=== PATIENT | female | born 1950 | race African-American/Black ===

== ENCOUNTER 2016-06-17 20:11 | Emergency (ER) | payer MEDICARE ==
[~2016-06-17] VITALS: Ht 167.6 cm; Wt 117.0 kg
[2016-06-17 20:15] VITALS: BP 140/75
[2016-06-17] MEDS ORDERED: Albuterol ud Inhalation HHN ONE (20:15)
[2016-06-17] MEDS ORDERED: ADVAIR 250-501 EACH INH (20:21)
[2016-06-17] MEDS ORDERED: MONTELUKAST SOD10 MG ORAL (20:21)
[2016-06-17] MEDS ORDERED: RANITIDINE HCL150 MG ORAL (20:21)
[2016-06-17] MEDS ORDERED: ADVAIR 100-501 EACH INH (20:21)
[2016-06-17] MEDS ORDERED: POTASSIUM CHLO10 ME2 PO (20:21)
[2016-06-17] MEDS ORDERED: DIOVAN160 MG ORAL (20:21)
[2016-06-17] MEDS ORDERED: ALBUTEROL2.5 MG/3 M INH (20:21)
[2016-06-17] MEDS ORDERED: OMEPRAZOLE20 M2 ORAL (20:21)
[2016-06-17] MEDS ORDERED: CARDIZEM CD120 MG ORAL (20:21)
[2016-06-17] MEDS ORDERED: FUROSEMIDE40 MG ORAL (20:21)
[2016-06-17] MEDS ORDERED: BISACODYL5 MG ORAL (20:21)
[2016-06-17] MEDS ORDERED: LOVENOX10 MG SUBQ (20:21)
[2016-06-17] MEDS ORDERED: Diltiazem 25mg/5ml IV ONE (21:00)
[2016-06-17 21:02] LABS: BASOPHILS % (AUTO) 0.9 % (0.0-2.0); EOSINOPHILS % (AUTO) 1.1 % (0.0-3.0); LYMPHOCYTES % (AUTO) 22.7 % (20.0-45.0); MEAN CORPUSCULAR HEMOGLOBIN 30.4 PG (27.0-31.0); MEAN CORPUSCULAR HGB CONC 33.7 G/DL (32.0-36.0); MEAN CORPUSCULAR VOLUME 90 FL (80-99); MEAN PLATELET VOLUME 8.1 FL (6.5-10.1); MONOCYTES % (AUTO) 11.6 % (1.0-10.0); NEUTROPHILS % (AUTO) 63.7 % (45.0-75.0); PLATELET COUNT 218 K/UL (150-450); RED BLOOD COUNT 4.44 M/UL (4.20-5.40); RED CELL DISTRIBUTION WIDTH 13.6 % (11.6-14.8); WHITE BLOOD COUNT 15.8 K/UL (4.8-10.8)
--- NOTE | 2016-06-17 21:16 | Emergency Room Report ---
History of Present Illness General Chief Complaint: Chest Pain Source: Patient, Medical Record (Kenney Thacker) Present Illness HPI Patient's a 66-year-old female presented after increased chest pain. Patient gradual onset of symptoms. Patient was noted to have intermittent pain for the greater than hours. The patient was noted to have increased pain to the left side of her chest. Patient recent hip surgery. She had not been having fever. She denied any vomiting. She was noted to have a nonproductive cough for the past few days. (Kenney Thacker) Allergies: Coded Allergies: BUDESONIDE (Verified Allergy, Unknown, 06/17/16) FORMOTEROL (Verified Allergy, Unknown, 06/17/16) MORPHINE (Verified Allergy, Unknown, 06/17/16) PENICILLINS (Verified Allergy, Unknown, 06/17/16) Patient History Past Medical History: see triage record Last Menstrual Period: n/a Reviewed Nursing Documentation: PMH: Agreed, PSxH: Agreed (Kenney Thacker) Nursing Documentation-PMH Past Medical History: No History, Except For Hx Hypertension: Yes Hx Asthma: Yes (Kenney Thacker) Review of Systems All Other Systems: negative except mentioned in HPI (Kenney Thacker) Physical Exam Vital Signs Date Time Temp Pulse Resp B/P Pulse Ox O2 Delivery O2 Flow Rate FiO2 06/17/16 20:07 109 16 115/86 96 Room Air 06/17/16 20:35 21 Sp02 EP Interpretation: reviewed, normal General Appearance: normal inspection, well appearing, no apparent distress, alert, GCS 15 Head: atraumatic ENT: normal ENT inspection, hearing grossly normal, normal voice Neck: normal inspection, full range of motion, supple, no bony tend Respiratory: normal inspection, lungs clear, normal breath sounds, no respiratory distress, no retraction, no wheezing Cardiovascular #1: regular rate, rhythm, no edema Gastrointestinal: normal inspection, normal bowel sounds, non tender, soft, no guarding, no hernia Genitourinary: no CVA tenderness Musculoskeletal: normal inspection, back normal, normal range of motion Neurologic: normal inspection, alert, oriented x3, responsive, 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 Differential diagnosis included but was not limited to acute coronary syndrome, pulmonary embolism, pneumonia, aortic dissection, shingles, pneumothorax, aortic dissection, esophageal rupture, pericarditis. Because of complexity of patient's case laboratory testing and imaging studies were ordered. EKG interpreted by me showed normal sinus rhythm with a rate of with no acute ST or T wave changes noted. Because the patient's recent surgery CT of the chest was ordered to rule out pulmonary embolism. Patient was endorsed to Dr. Lin to go back to SNF if CT negative as ruled out for myocardial pain. Labs Test 06/17/16 20:45 White Blood Count 15.8 K/UL (4.8-10.8) Red Blood Count 4.44 M/UL (4.20-5.40) Hemoglobin 13.5 G/DL (12.0-16.0) Hematocrit 40.0 % (37.0-47.0) Mean Corpuscular Volume 90 FL (80-99) Mean Corpuscular Hemoglobin 30.4 PG (27.0-31.0) Mean Corpuscular Hemoglobin Concent 33.7 G/DL (32.0-36.0) Red Cell Distribution Width 13.6 % (11.6-14.8) Platelet Count 218 K/UL (150-450) Mean Platelet Volume 8.1 FL (6.5-10.1) Neutrophils (%) (Auto) 63.7 % (45.0-75.0) Lymphocytes (%) (Auto) 22.7 % (20.0-45.0) Monocytes (%) (Auto) 11.6 % (1.0-10.0) Eosinophils (%) (Auto) 1.1 % (0.0-3.0) Basophils (%) (Auto) 0.9 % (0.0-2.0) Sodium Level 136 mEQ/L (135-145) Potassium Level 4.8 mEQ/L (3.4-4.9) Chloride Level 95 mEQ/L (98-107) Carbon Dioxide Level 26 mEQ/L (20-30) Anion Gap 15 (5-15) Blood Urea Nitrogen 24 mg/dL (7-23) Creatinine 0.9 mg/dL (0.5-0.9) Estimat Glomerular Filtration Rate > 60 mL/min (>60) Glucose Level 136 mg/dL (74-106) Calcium Level 9.3 mg/dL (8.6-10.2) Total Bilirubin 0.2 mg/dL (0.0-1.2) Aspartate Amino Transf (AST/SGOT) 28 U/L (5-40) Alanine Aminotransferase (ALT/SGPT) 22 U/L (3-33) Alkaline Phosphatase 91 U/L (35-104) Total Creatine Kinase 503 U/L (26-140) Creatine Kinase MB 6.3 ng/mL (< 3.8) Creatine Kinase MB Relative Index 1.2 Troponin I < 0.30 ng/mL (<=0.30) Pro-B-Type Natriuretic Peptide 60 pg/mL (0-125) Total Protein 6.5 g/dL (6.6-8.7) Albumin 3.7 g/dL (3.5-5.2) Globulin 2.8 g/dL Albumin/Globulin Ratio 1.3 (1.0-2.7) (Kenney Thacker) ER Course Received signout from Dr Thacker to followup CT Chest CT Chest: no PNA or PE Dr Thacker stated if no PNA or PE, send back to rehab facility We tried to contact Dr Becerra - wire charger left message at 12 midnight. Pending call back Will DC patient back to SNF (CECILE LIN M.D.) EKG Diagnostic Results Rate: normal Rhythm: NSR ST Segments: no acute changes (Kenney Thacker) Rhythm Strip Diag. Results EP Interpretation: yes Rhythm: NSR, no PVC's, no ectopy (Kenney Thacker) Last Vital Signs Date Time Temp Pulse Resp B/P Pulse Ox O2 Delivery O2 Flow Rate FiO2 06/17/16 20:36 106 20 100 Room Air 06/17/16 20:35 21 06/17/16 20:07 115/86 Status: improved (Kenney Thacker) Status: improved (CECILE LIN M.D.) Disposition: XF SNF Condition: Stable Kenney Thacker June 17, 2016 21:16 CECILE LIN M.D. June 18, 2016 00:09
[2016-06-17 21:25] LABS: TROPONIN I < 0.30 ng/mL (<=0.30)
[2016-06-17 21:26] LABS: ALANINE AMINOTRANSFERASE 22 U/L (3-33); ALBUMIN/GLOBULIN RATIO 1.3 (1.0-2.7); ANION GAP 15 (5-15); ASPARTATE AMINO TRANSFERASE 28 U/L (5-40); CALCIUM 9.3 mg/dL (8.6-10.2); CARBON DIOXIDE 26 mEQ/L (20-30); CHLORIDE 95 mEQ/L (98-107); CREATININE 0.9 mg/dL (0.5-0.9); GLOMERULAR FILTRATION RATE > 60 mL/min (>60); HEMOLYSIS 41; POTASSIUM 4.8 mEQ/L (3.4-4.9); SODIUM 136 mEQ/L (135-145); TOTAL PROTEIN 6.5 g/dL (6.6-8.7)
[2016-06-17 21:37] LABS: CKMB 6.3 ng/mL (< 3.8)
[2016-06-17 22:15] VITALS: BP 130/71
[2016-06-18 00:15] VITALS: BP 118/62
[2016-06-18 00:54] VITALS: BP 117/61
--- NOTE | 2016-06-18 11:04 | Diagnostic Imaging Report ---
Indication: Chest pain Technique: Continuous helical transaxial imaging of the chest was obtained from the thoracic inlet to the upper abdomen during rapid intravenous contrast administration. Arterial phase of enhancement obtained. Coronal 2-D reformats were also obtained and maximum intensity projection images in multiple planes. Study obtained in a Siemens sensation [address] Total Dose length Product (DLP): mGycm CT Dose Index Volume (CTDIvol): mGy Comparison: None Findings: Pulmonary artery is not well opacified but no obvious pulmonary embolus identified. Second and third order branching not evaluated adequately. There is mild basilar atelectasis. No consolidation identified. No adenopathy seen. Aorta shows mural calcification. Upper abdomen is unremarkable. Impression: Limited evaluation showing no central pulmonary embolus. Bolus is not adequate beyond the the first and second order branching. Atherosclerotic vascular disease Basilar atelectasis [facility] has communicated the preliminary results to the Emergency Department. Their findings are largely concordant with this report. The CT scanner at [facility] is accredited by the [employer] and the scans are performed using dose optimization techniques as appropriate to a performed exam including Automatic Exposure control.
--- NOTE | 2016-06-18 12:42 | Cardiology Report ---
APPROVED REPORT EKG Measurement Heart [id number] Sinus tachycardia Incomplete right bundle branch block Left anterior fascicular block Voltage criteria for left ventricular hypertrophy Cannot rule out Septal infarct, age undetermined Abnormal ECG
== END 2016-06-18 00:54 | disposition home or self-care (01) ==
LOC: EDBD 20:11 → EMR 20:40 → CANBEDREQ 23:46 → EMR 06-18 00:54
DX: R07.9 Chest pain, unspecified (principal); I10 Essential (primary) hypertension; J45.909 Unspecified asthma, uncomplicated; Z88.0 Allergy status to penicillin; Z88.6 Allergy status to analgesic agent
CPT/HCPCS: 36415; 71275; 80053; 82550; 82553; 83880; 84484; 85025; 93005; 94640; 94664; 96360; 96374; 96375; 99284; J1956; J7040; Q9967